=== PATIENT | female | born 1985 | race African-American/Black ===

== ENCOUNTER 2016-09-29 14:38 | Emergency (ER) | payer OTHER ==
[~2016-09-29] VITALS: Ht 154.9 cm; Wt 71.7 kg
--- NOTE | ~2016-09-29 | EKG ---
[place] [address] [facility] [place] [address] ELECTROCARDIOGRAM REPORT Name: DRE CRANE Room #: [facility]P [facility]o#: [id number] Admission: 09/29/16 Attend Phys: Discharge: 09/29/16 Date of : 81 Report #: [id number] THIS REPORT FOR: //name// [facility] ED Test Date: 2016-09-29 Test Time: 14:48:34 Pat Name: DRE CRANE Department: Room: Gender: F [employer]otype Mechanic: MZOOK : 1985 Requested By: Souleymane Austin Order Number: [id number] MD: Ankur Michael Measurements Intervals [place] Rate: 75 P: 60 AK: 138 QRS: 61 QRSD: 78 T: 2 QT: 389 QTc: 435 Interpretive Statements Sinus rhythm Probable left atrial enlargement Borderline T abnormalities, inferior leads No previous ECG available for comparison Electronically Signed On 10-01-2016 9:44:09 CDT by Ankur Michael [email or web address] <ELECTRONICALLY SIGNED> By: Ankur Michael MD 10/01/16 0944 [id number] [id number] MD BASILIO Hood
[~2016-09-29 14:38] MED LIST: NOHOMEMEDICATIONS; NORCO 5-325 TA1 EACH PO; PHENERGAN25 MG RE; ZOFRAN ODT4 MG PO
[2016-09-29 15:24] LABS: ABSOLUTE NEUTROPHILS 4.6 thou/uL (1.4-8.2); BASOPHILS 0.5 % (0.0-2.0); EOSINOPHILS 0.8 % (0.0-3.0); HEMATOCRIT 36.4 % (37.0-47.0); HEMOGLOBIN 12.1 gm/dL (12.0-15.0); LYMPHOCYTES 21.9 % (24.0-44.0); MCH 25.1 pg (26.0-34.0); MCHC 33.4 g/dL (28.0-37.0); MONOCYTES 9.7 % (1.0-8.0); PLATELET COUNT 311 thou/uL (150-400); POLYS 67.1 % (36.0-66.0); RBC 4.85 mil/uL (4.20-5.00); RDW 14.1 % (10.5-14.5); WBC 6.8 thou/uL (4.0-11.0)
[2016-09-29 15:26] LABS: MANUAL DIFF NO
[2016-09-29 15:31] LABS: ANION GAP 11 mmol/L (7-16); BUN 12 mg/dL (7-18); CALCIUM 8.7 mg/dL (8.5-10.1); CHLORIDE 104 mmol/L (98-107); CO2 26 mmol/L (21-32); CREATININE 0.8 mg/dL (0.6-1.0); GLUCOSE 88 mg/dL (74-106); POTASSIUM 3.6 mmol/L (3.5-5.1); SODIUM 141 mmol/L (136-145)
[2016-09-29 15:38] LABS: ALBUMIN 3.8 g/dL (3.4-5.0); ALKALINE PHOSPHATASE 65 U/L (46-116); DIRECT BILIRUBIN 0.1 mg/dL (<0.1-0.3); SGOT 24 U/L (15-37); SGPT 28 U/L (30-65); TOTAL BILIRUBIN 0.6 mg/dL (<0.1-1.0); TOTAL PROTEIN 7.5 g/dL (6.4-8.2); TROPONIN-I < 0.04 ng/mL (<0.04-0.07)
[2016-09-29] MEDS ORDERED: INDOMETHACIN 2525 MG PO (17:00)
[2016-09-29 17:16] VITALS: BP 120/86
== END 2016-09-29 17:16 | disposition home or self-care (01) ==
LOC: ER 14:38
PROVIDERS: Physician Assistant
DX: R07.9 Chest pain, unspecified (principal); Z88.5 Allergy status to narcotic agent; F12.10 Cannabis abuse, uncomplicated